=== PATIENT | male | born 1925 | race Caucasian/White ===

== ENCOUNTER → 2016-05-28 | Outpatient (CLI) | payer MEDICARE, BC ==
[~2016-05-28] MED LIST: ASPI-558 PO; CLOP75TA PO; DILT180T PO; MULT-761 PO; NIAC500T74 PO; NITR0.4T27 SL; RANI150T7 PO; SIMV20TA6 PO; TAMS-1 PO
--- NOTE | 2016-05-28 15:11 | DI ---
Indication: ITS.REASON: M54.6 THORACIC PAIN PROCEDURE: CT THORACIC SPINE W/O CONTRAST: Encounter: Initial Comparison: CT lumbar spine dated September 30, 2015: Technique: Axial noncontrast CT imaging of the thoracic spine was performed with coronal and sagittal two-dimensional reformats. Automated Exposure Control and Iterative Reconstruction dose reducing techniques were utilized. FINDINGS: Alignment of the thoracic spine shows is within normal limits. No acute fracture identified. Vertebral body heights are maintained. Mild bony demineralization. Age-appropriate mild degenerative changes without obvious evidence of central canal or neural foraminal stenosis. Mild to moderate emphysema noted within the visualized lung jha. A few small Schmorl's nodes are present. Impression: Unremarkable exam for age. No acute fracture seen. .
== END ==
LOC: IMA 14:28
PROVIDERS: ATTEND Pain Medicine Pain Medicine
DX: M54.6 Pain in thoracic spine (principal)